=== PATIENT | female | born 1955 | race Caucasian/White ===

== ENCOUNTER 2017-07-03 07:44 | Day surgery (SDC) | payer OTHER ==
[~2017-07-03 07:44] MED LIST: Lidocaine 1% with EPINEPHrine 1:100,000 50 ML MDV ONE
[2017-07-03] MEDS ORDERED: Dextrose 5%-Lactated Ringers 1,000 ML IV SCH (08:15)
[2017-07-03] MEDS ORDERED: ceFAZolin 2 GM in Premix Bag 1 BAG IV ONE (08:45)
[2017-07-03] MEDS ORDERED: Ondansetron 4 MG/2 ML SDV ONE (10:01)
[2017-07-03] MEDS ORDERED: Ketorolac 60 MG/2 ML SDV ONE (10:06)
[2017-07-03] MEDS ORDERED: Midazolam 1 MG/ML 2 ML SDV ONE (10:39)
[2017-07-03] MEDS ORDERED: Propofol 200 MG/20 ML SDV ONE (10:39)
[2017-07-03] MEDS ORDERED: fentaNYL 100 MCG/2 ML SDV ONE (10:39)
[2017-07-03] MEDS ORDERED: Lidocaine 0.5% 50 ML SDV ONE (10:39)
[2017-07-03] MEDS ORDERED: Acetaminophen/HYDROcodone 325-5 MG Tab PO ONE (11:13)
--- NOTE | 2017-07-06 18:12 | OR ---
DATE OF PROCEDURE: 07/03/2017 PREOPERATIVE DIAGNOSIS: Left carpal tunnel syndrome. POSTOPERATIVE DIAGNOSIS: Left carpal tunnel syndrome. PROCEDURE: Left carpal tunnel release ([id number]). ANESTHESIA: IV block plus sedation. INDICATION FOR PROCEDURE: This is a 62-year-old presenting with left carpal tunnel syndrome. She had some on presentation on the right side, so I figure she underwent a carpal tunnel release with good result. Plan is to proceed with a carpal tunnel release on the left side. Potential risks including bleeding, infection, injury to the median nerve and/or its branches, possible incomplete relief of symptoms were all reviewed, and the patient wishes to proceed. DETAILS OF PROCEDURE: The patient was taken to the operating room and placed in a supine position. IV sedation was administered, after which an IV block was placed affecting the left forearm and hand. Those areas were then prepped and draped. A standard carpal tunnel incision was made and carried down through the skin and subcutaneous tissue. The transverse carpal ligament was identified and divided for the length of the carpal tunnel including extending somewhat onto the palm of the hand as well as proximally above the incision. The ligament was quite thick and retracted under considerable tension. The underlying median nerve was intact and the subdermal tissues were then approximated with some 4-0 Vicryl stitch and the skin with a 5-0 Prolene stitch. Dressing was applied. The patient was taken to the recovery room in satisfactory condition. There were no evident complications. Abbe Mcmahon MD /[id number]
== END 2017-07-03 11:50 | disposition home or self-care (01) ==
LOC: JP.SDS 07:44
PROVIDERS: ATTEND Surgery
DX: G56.02 Carpal tunnel syndrome, left upper limb (principal); I10 Essential (primary) hypertension; F17.200 Nicotine dependence, unspecified, uncomplicated
CPT/HCPCS: 64721; A9270; J0690; J1885; J2250; J2704; J3010; J7042; 88304; J2405

== ENCOUNTER 2020-03-19 13:28 | Emergency (ER) | payer MEDICARE, BC ==
[2020-03-19] MEDS ORDERED: Sodium Chloride 0.9% 10 ML Syringe FLUSH PRN (14:04)
[2020-03-19] MEDS ORDERED: Metoprolol Tartrate 25 MG Tab PO ONE ×2 (14:16→17:16)
--- NOTE | 2020-03-19 14:25 | EDM.PDOC ---
ED HPI GENERAL MEDICAL PROBLEM - General Chief Complaint: Cardiovascular Problem Stated Complaint: A FIB Time Seen by Provider: 03/19/20 14:20 Source of Information: Reports: Patient, EMS, Old Records, Provider History Limitations: Reports: No Limitations - History of Present Illness INITIAL COMMENTS - FREE TEXT/NARRATIVE: 65 yo female presents with a rapid irregular heart rate/rhythm that was present upon awakening today. It is not associated with any other sx's except she has noticed over recent weeks that her ankles are more swollen than normal. No pHx of afib, CAD or CHF. Has never had an ECHO. Denies CP, diaphoresis, or orthopnea. No thyroid dz. Was referred from the clinic today. Onset: Today (present upon awakening) Onset Date: 03/19/20 Duration: Hour(s):, Constant Location: Reports: Chest Quality: Reports: Other (no pain) Severity: Moderate Improves with: Reports: None Worsens with: Reports: Other (unknown) Context: Reports: Other (See HPI) Associated Symptoms: Reports: No Other Symptoms Treatments VARNISH THINNER: Reports: Other (see below) (none) - Related Data Allergies Allergy/AdvReac Type Severity Reaction Status Date / Time No Known Allergies Allergy Verified 07/03/17 08:32 Home Meds: Home Meds Aspirin [Adult Low Dose Aspirin EC] 81 mg PO DAILY 07/02/17 [History] Gabapentin [Neurontin] 600 mg PO TID 07/02/17 [History] Latanoprost [Xalatan 0.005% Ophth Soln] 1 drop EYEBOTH BEDTIME 07/02/17 [History] S-Adenosylmethionine Sul Tosyl [Garrett-E] 400 mg PO DAILY 07/02/17 [History] hydroCHLOROthiazide [Hydrochlorothiazide] 12.5 mg PO DAILY 07/02/17 [History] Calcium Carb/Magnesium Oxid/D3 [Calcium Magnesium + D] 4 tab PO DAILY 07/03/17 [History] Metoprolol Tartrate 25 mg PO Q12H #60 tablet 03/19/20 [Rx] Metoprolol Tartrate [Lopressor] 25 mg PO Q12HR #1 tab 03/19/20 [Rx] Past Medical History HEENT History: Reports: Cataract, Impaired Vision, Other (See Below) Other HEENT History: 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 Cardiovascular History: Reports: Hypertension Musculoskeletal History: Reports: Osteoarthritis, Other (See Below) Other Musculoskeletal History: bilateral knee pain Neurological History: Reports: Migraines Endocrine/Metabolic History: Reports: Obesity/BMI 30+ - Past Surgical History GI Surgical History: Reports: Colonoscopy Musculoskeletal Surgical History: Reports: Knee Replacement Social & Family History - Tobacco Use Smoking Status *Q: Former Smoker Used Tobacco, but Quit: Yes Month/Year Tobacco Last Used: 1 - Caffeine Use Caffeine Use: Reports: Coffee ED ROS GENERAL - Review of Systems Review Of Systems: See Below Constitutional: Reports: No Symptoms HEENT: Reports: No Symptoms Respiratory: Reports: No Symptoms Cardiovascular: Reports: Edema (of feet and ankles, precedes today's sx's), Palpitations. Denies: Chest Pain, Dyspnea on Exertion, Lightheadedness GI/Abdominal: Reports: No Symptoms : Reports: No Symptoms Musculoskeletal: Reports: No Symptoms Skin: Reports: No Symptoms Neurological: Reports: No Symptoms ED EXAM, GENERAL - Physical Exam Exam: See Below Exam Limited By: No Limitations General Appearance: Alert, WD/WN, No Apparent Distress, Obese Eye Exam: Bilateral Eye: Normal Inspection Ears: Normal External Exam, Normal Canal, Hearing Grossly Normal, Normal TMs Ear Exam: Bilateral Ear: Auricle Normal, Canal Normal Nose: Normal Inspection, No Blood Throat/Mouth: Normal Inspection, Normal Lips, Normal Oropharynx, Normal Voice, No Airway Compromise Head: Atraumatic, Normocephalic Neck: Normal Inspection Respiratory/Chest: No Respiratory Distress, Lungs Clear, Normal Breath Sounds, No Accessory Muscle Use Cardiovascular: Tachycardia, Irregularly Irregular GI/Abdominal: Soft, Non-Tender Extremities: Pedal Edema (trace to both LE's below the knees.) Neurological: Alert, Oriented, CN II-XII Intact, Normal Cognition, No Motor/Sensory Deficits Psychiatric: Normal Affect, Normal Mood Skin Exam: Warm, Dry, Intact, Normal Color, No Rash ED CARDIOLOGY PROCEDURES - Cardioversion Time of Cardioversion: 16:05 Indication: Atrial Fibrillation with RVR Patient Counseled: Yes Informed Consent Obtained: Yes Preparation: IV Access, Airway Management Equipment, Supplemental Oxygen, Monitor, Reversal Agents Available Pre-Procedure Sedation: Midazolam (7 mg total IV) Cardioversion Energy: 200J Sync Mode: Monophasic (200 J) Successful: Yes Number of Attempts: 1 Patient Condition Post Cardioversion: Improved Post Cardioversion EKG Reviewed: Yes EKG INTERPRETATION EKG Date: 03/19/20 Time: 13:10 Rhythm: A-Fib Rate (Beats/Min): 122 [place]: Normal P-Wave: Absent QRS: Normal ST-T: Normal QT: Normal Comparison: NA - No Prior EKG Course - Vital Signs Last Recorded V/S: Last Vital Signs Temp 36.6 C 03/19/20 14:08 Pulse 117 H 03/19/20 14:31 Resp 17 03/19/20 14:31 BP 156/82 H 03/19/20 14:31 Pulse Ox 99 03/19/20 14:31 - Orders/Labs/Meds Orders: Active Orders 24 hr Category Date Time Status Cardiac Monitoring [RC] .As Directed Care 03/19/20 13:53 Active EKG Documentation Completion [RC] ASDIRECTED Care 03/19/20 16:11 Active Sodium Chloride 0.9% [Normal Saline] 1,000 ml Med 03/19/20 16:00 Active IV ASDIRECTED Sodium Chloride 0.9% [Saline Flush] Med 03/19/20 14:04 Active 10 ml FLUSH ASDIRECTED PRN Saline Lock Insert [OM.PC] Routine Oth 03/19/20 14:04 Ordered EKG 12 Lead [EK] Routine Ther 03/19/20 16:11 Ordered Medication Orders Sodium Chloride (Normal Saline) 1,000 mls @ 150 mls/hr IV ASDIRECTED JOSUE Last Admin: 03/19/20 16:25 Dose: 150 mls/hr Documented by: LIANE Sodium Chloride (Saline Flush) 10 ml FLUSH ASDIRECTED PRN PRN Reason: Keep Vein Open Last Admin: 03/19/20 14:13 Dose: 10 ml Documented by: [email or web address] Labs: Laboratory Tests 03/19/20 03/19/20 03/19/20 Range/Units 14:07 14:15 14:15 WBC 5.5 (4.5-11.0) K/uL RBC 5.02 (3.30-5.50) M/uL Hgb 12.7 D (12.0-15.0) g/dL Hct 40.7 (36.0-48.0) % MCV 81 (80-98) fL MCH 25 L (27-31) pg MCHC 31 L (32-36) % Plt Count 236 (150-400) K/uL Sodium 140 (140-148) mmol/L Potassium 4.0 (3.6-5.2) mmol/L Chloride 105 (100-108) mmol/L Carbon Dioxide 24 (21-32) mmol/L Anion Gap 11.4 (5.0-14.0) mmol/L BUN 23 H (7-18) mg/dL Creatinine 1.0 (0.6-1.0) mg/dL Est Cr Clr Drug Dosing 39.21 mL/min Estimated GFR (MDRD) 55 L (>60) Glucose 96 (74-106) mg/dL Calcium 9.6 (8.5-10.1) mg/dL Troponin I < 0.017 (0.000-0.056) ng/mL TSH, Ultra Sensitive < 0.007 L (0.358-3.740) uIU/mL Urine Color Yellow (YELLOW) Urine Appearance Clear (CLEAR) Urine pH 6.5 (5.0-8.0) Ur Specific [place] 1.020 (1.008-1.030) Urine Protein Negative (NEGATIVE) mg/dL Urine Glucose (UA) Negative (NEGATIVE) mg/dL Urine Ketones Negative (NEGATIVE) mg/dL Urine Occult Blood Negative (NEGATIVE) Urine Nitrite Negative (NEGATIVE) Urine Bilirubin Negative (NEGATIVE) Urine Urobilinogen 0.2 (0.2-1.0) EU/dL Ur Leukocyte Esterase Trace H (NEGATIVE) Urine RBC Not seen (0-5) Urine WBC Not seen (0-5) Ur Epithelial Cells Rare Urine Bacteria Not seen Meds: Medications Generic Name Dose Route Start Last Admin Trade Name Freq PRN Reason Stop Dose Admin Sodium Chloride 1,000 mls @ 150 mls/hr 03/19/20 16:00 03/19/20 16:25 Normal Saline IV 150 mls/hr ASDIRECTED JOSUE Administration Sodium Chloride 10 ml 03/19/20 14:04 03/19/20 14:13 Saline Flush FLUSH 10 ml ASDIRECTED PRN Administration Keep Vein Open Discontinued Medications Generic Name Dose Route Start Last Admin Trade Name Freq PRN Reason Stop Dose Admin Metoprolol Tartrate 25 mg 03/19/20 14:16 03/19/20 14:31 Lopressor PO 03/19/20 14:17 25 mg ONETIME ONE Administration Midazolam HCl 5 mg 03/19/20 15:45 03/19/20 16:09 Versed 1 Mg/Ml IVPUSH 03/19/20 15:46 5 mg ONETIME ONE Administration Midazolam HCl Confirm 03/19/20 16:03 03/19/20 16:20 Versed 1 Mg/Ml Administered 03/19/20 16:04 Not Given Dose 5 mg .ROUTE .STK-MED ONE Midazolam HCl 2 mg 03/19/20 16:10 03/19/20 16:09 Versed 1 Mg/Ml IVPUSH 03/19/20 16:11 2 mg ONETIME ONE Administration Departure - Departure Time of Disposition: 17:05 Disposition: Home, Self-Care 01 Condition: Fair Clinical Impression: Atrial fibrillation with RVR, Hyperthyroidism Prescriptions: Metoprolol Tartrate [Lopressor] 25 mg PO Q12HR #1 tab Metoprolol Tartrate 25 mg PO Q12H #60 tablet Instructions: Hyperthyroidism, Atrial Fibrillation, [id number] Referrals: Mariya Cordero MD [Primary Care Provider] - Forms: ED Department Discharge Additional Instructions: Add metoprolol tartrate 25 mg every 12 hrs, next dose at bedtime tonight. Recheck ALISA in the clinic to work up your hyperthyroidism. Return to the ER as needed. Continue your other medicines as before. Sepsis Event Note (ED) - Evaluation Sepsis Screening Result: No Definite Risk - Focused Exam Vital Signs: Vital Signs Temp Pulse Pulse Resp BP BP Pulse Ox 03/19/20 14:31 115 H 117 H 17 154/98 H 156/82 H 99 03/19/20 14:08 36.6 C 125 H 16 154/98 H 99 - My Orders Last 24 Hours: My Active Orders 03/19/20 13:53 Cardiac Monitoring [RC] .As Directed 03/19/20 14:04 Sodium Chloride 0.9% [Saline Flush] 10 ml FLUSH ASDIRECTED PRN Saline Lock Insert [OM.PC] Routine 03/19/20 16:00 Sodium Chloride 0.9% [Normal Saline] 1,000 ml IV ASDIRECTED 03/19/20 16:11 EKG Documentation Completion [RC] ASDIRECTED EKG 12 Lead [EK] Routine - Assessment/Plan Last 24 Hours: My Active Orders 03/19/20 13:53 Cardiac Monitoring [RC] .As Directed 03/19/20 14:04 Sodium Chloride 0.9% [Saline Flush] 10 ml FLUSH ASDIRECTED PRN Saline Lock Insert [OM.PC] Routine 03/19/20 16:00 Sodium Chloride 0.9% [Normal Saline] 1,000 ml IV ASDIRECTED 03/19/20 16:11 EKG Documentation Completion [RC] ASDIRECTED EKG 12 Lead [EK] Routine
[2020-03-19] MEDS ORDERED: Sodium Chloride 0.9% 1,000 ML IV SCH (16:00)
[2020-03-19] MEDS: Midazolam 1 MG/ML 5 ML SDV IVPUSH ONE ×2 (16:02→16:09)
[2020-03-19] MEDS ORDERED: Midazolam 1 MG/ML 5 ML SDV ONE (16:03)
[2020-03-19] MEDS ORDERED: Midazolam 1 MG/ML 2 ML SDV IVPUSH ONE (16:10)
== END 2020-03-19 17:22 | disposition home or self-care (01) ==
LOC: JP.ED 13:28
DX: I48.91 Unspecified atrial fibrillation (principal); E05.90 Thyrotoxicosis, unspecified without thyrotoxic crisis or storm; I10 Essential (primary) hypertension; E66.9 Obesity, unspecified; G43.909 Migraine, unspecified, not intractable, without status migrainosus; Z79.82 Long term (current) use of aspirin; Z79.899 Other long term (current) drug therapy; Z87.891 Personal history of nicotine dependence
CPT/HCPCS: 36415; 80048; 81001; 84443; 84484; 85027; 92950; 92960; 93005; 93010; 96360; 99152; 99153; 99283; 99285; A9270; J2250; J7030